=== PATIENT | male | born 1970 | race Caucasian/White ===

== ENCOUNTER → 2017-08-15 | Outpatient (CLI) | payer MEDICARE, OTHER ==
[~2017-08-15] MED LIST: BENADRYL25 MG PO; CELEXA40 MG PO; CITALOPRAM HYDROBROM; COLACE100 MG PO; METHIMAZOLE PO; METHIMAZOLE5 MG PO; PERCOCET 5/31 TABLET PO; SIMVASTATIN10 MG PO; TAPAZOLE5 MG PO; WELLBUTRIN XL150 MG PO; ZYRTEC10 M2 PO
== END | disposition home or self-care (01) ==
LOC: CDC 10:25
DX: Z01.810 Encounter for preprocedural cardiovascular examination (principal); K40.90 Unilateral inguinal hernia, without obstruction or gangrene, not specified as recurrent; I45.4 Nonspecific intraventricular block
CPT/HCPCS: 93000

== ENCOUNTER 2017-08-16 05:15 | Day surgery (SDC) | payer OTHER ==
[~2017-08-16] VITALS: Ht 177.8 cm; Wt 90.0 kg
[~2017-08-16 05:15] MED LIST changes: -COLACE100 MG PO; -PERCOCET 5/31 TABLET PO
[2017-08-16 06:08] VITALS: BP 122/69
[2017-08-16] MEDS ORDERED: COLACE100 MG PO (09:33)
[2017-08-16] MEDS ORDERED: PERCOCET 5/31 TABLET PO (09:33)
[2017-08-16 11:36] VITALS: BP 99/55
[2017-08-16 12:30] VITALS: BP 92/53
[2017-08-16 14:30] VITALS: BP 101/57
[2017-08-16 17:15] VITALS: BP 96/56
== END 2017-08-16 17:25 | disposition home or self-care (01) ==
LOC: SDC
PROC: 0YUA4JZ Supplement Bilateral Inguinal Region with Synthetic Substitute, Percutaneous Endoscopic Approach (ICD-10-PCS; principal; 2017-08-16)
DX: K40.90 Unilateral inguinal hernia, without obstruction or gangrene, not specified as recurrent (principal); D17.6 Benign lipomatous neoplasm of spermatic cord; F84.5 Asperger's syndrome; E05.90 Thyrotoxicosis, unspecified without thyrotoxic crisis or storm; E78.00 Pure hypercholesterolemia, unspecified; F41.8 Other specified anxiety disorders; K21.9 Gastro-esophageal reflux disease without esophagitis
CPT/HCPCS: C1781; J0131; J0690; J1100; J1170; J1885; J2250; J2405; J2710; J3010; J7120; Q0175